=== PATIENT | female | born 1955 | race Asian ===

== ENCOUNTER → 2016-08-13 | Outpatient (CLI) | payer OTHER | LOC: CIMAGING 15:25 | PROVIDERS: ATTEND Family Medicine | DX: R91.1 Solitary pulmonary nodule (principal); R91.8 Other nonspecific abnormal finding of lung field | CPT/HCPCS: 71250-PO ==

== ENCOUNTER → 2017-05-06 | Outpatient (CLI) | payer OTHER | LOC: CIMAGING 14:02 | PROVIDERS: ATTEND Family Medicine | DX: Z12.31 Encounter for screening mammogram for malignant neoplasm of breast (principal) | CPT/HCPCS: G0202 ==